=== PATIENT | male | born 1970 | race Caucasian/White ===

== ENCOUNTER 2018-10-31 09:09 | Inpatient (IN) ==
[2018-10-31] MEDS ORDERED: KETOROLAC 30 MG/ML VIAL IV STA (09:22)
[2018-10-31] MEDS ORDERED: ONDANSETRON INJ 2 MG/ML 2 ML VIAL IV STA (09:22)
[2018-10-31] MEDS ORDERED: TAMSULOSIN HCL 0.4 MG CAP PO ONE (09:22)
[2018-10-31] MEDS ORDERED: MoRPHine SULFATE 4 MG/ML 1 ML CARP\\VIAL IV STA (09:22)
[2018-10-31] MEDS ORDERED: SODIUM CHLORIDE 0.9% 1000ML 1,000 ML IV SCH (09:30)
[2018-10-31] MEDS ORDERED: MoRPHine SULFATE 2 MG/ML CARP ONE (09:38)
[2018-10-31 09:46] LABS: Basophils # (auto) 0.02 K/uL (0-0.2); Basophils % (auto) 0.2 %; Eosinophils # (auto) 0.03 K/uL (0-0.5); Eosinophils % (auto) 0.3 %; Hematocrit (blood only) 44.5 % (42-52); Hemoglobin 16.2 g/dL (14.0-18.0); Immature Granulocytes # (auto) 0.05 K/uL (0.00-0.02); Immature Granulocytes % (auto) 0.4 %; Lymphocytes # (auto) 1.21 K/uL (1.2-3.4); Lymphocytes % (auto) 10.1 %; Mean Corpuscular Hgb Conc 36.4 g/dL (32-36); Mean Corpuscular Volume 81.5 fL (80-100); Mean Platelet Volume 9.4 fL (7.4-10.4); Monocytes % (auto) 13.4 %; Neutrophils # (auto) 9.07 K/uL (1.4-6.5); Neutrophils % (auto) 75.6 %; Platelet Count 175 K/uL (130-400); RDW Coefficient of Variation 12.6 % (11.5-14.5); RDW Standard Deviation 37.3 fL (36.4-46.3); Red Blood Count 5.46 M/uL (4.7-6.1); White Blood Count 11.98 K/uL (4.8-10.8)
--- NOTE | 2018-10-31 09:46 | XRay Report ---
KUB CLINICAL HISTORY: Nephrolithiasis. Bilateral flank pain. FINDINGS: 2 AP supine abdominal radiographs are compared to study dated 10/29/2018 and correlated with abdominal CT dated 10/29/2018. There is a nonobstructed abdominal bowel gas pattern noting moderate c olonic fecal retention. The right renal shadow is largely obscured by overlying colonic contents. A 7 mm left renal calculus has changed in position from 10/29/2018 and now projects over the left uretero pelvic junction. 2 nonobstructing lower pole calculi are unchanged and measure up to 5 mm. No right r enal calculi are clearly identified. Numerous pelvic phleboliths are unchanged. There is mild lumbosa cral spondylosis. The bony pelvis appears intact. Lung bases are clear as imaged. IMPRESSION: 1. A 7 mm left renal calculus has changed in position from 10/29/2018 and now projects over the ureter opelvic junction. If there is left flank pain this likely causes obstruction. 2. Additional nonobstructing left renal calculi are unchanged from previous. 3. No right renal calculi are identified. The small distal right ureteral stone seen by CT on 10/30/19 19 is not apparent by x-ray. Electronically signed by: Tip Collier M.D. 10/31/2018 9:45 AM
--- NOTE | 2018-10-31 09:55 | Emergency Department Note ---
History of Present Illness General Chief complaint: Kidney Stone Stated complaint: KIDNEY STONES Time Seen by Provider: 10/31/18 09:13 History of Present Illness Maximum Pain Intensity: 9 This 47-year-old male with known kidney stones presents the ER with chief complaint of uncontrolled back and lower abdomen pain. The patient also admits to constant nausea and vomiting. The patient was seen here 2 days ago for the same symptoms. He had a CAT scan which revealed a 4 mm stone at the distal right ureter with moderate hydronephrosis. He was discharged home in stable condition on pain medication and was told to follow-up with urology yesterday. The patient states he called into urology and they stated there was no physician in the office and they contacted a physician and they stated that the patient could wait and be seen in the office on Friday by Dr. Hester. The patient states that since yesterday he has had increasing pain on both sides of his back and now it is into the groin. He thinks 1 of the stones that was in his left kidney is also moving. He does admit that he has an 11 mm stone in the left kidney. The patient states that his pain is uncontrolled on the hydrocodone. Home Medications Home Medications Medication Instructions Recorded Confirmed Type Trulicity 1 dose SUBCUT WK 08/13/18 10/31/18 History metformin 1,000 mg PO BID 08/13/18 10/31/18 History simvastatin 20 mg PO HS 08/13/18 10/31/18 History oxycodone-acetaminophen 1 tab PO Q6H PRN #14 tab 09/04/18 10/31/18 Rx acetaminophen [Tylenol Extra 1,000 mg PO Q6H PRN 10/29/18 10/31/18 History Strength] hydrocodone-acetaminophen [Hooven] 1 tab PO Q6H PRN #14 tab 10/29/18 10/31/18 Rx tamsulosin 0.4 mg PO DAILY #14 cap 10/29/18 10/31/18 Rx Allergies Allergy/AdvReac Type Severity Reaction Status Date / Time No Known Allergies Allergy Verified 10/29/18 17:15 Past Med/Surg History Medical History Kidney stone (Chronic) Diabetes mellitus, type 2 NIDDM Sleep apnea CPAP Surgical History History of ankle surgery LEFT History of inguinal hernia repair RT History of tonsillectomy and adenoidectomy Family History Mother Family history of diabetes mellitus Social History Preferred Language: [place] Islander Communication Ability: Effective V[employer] Required: No Beliefs That Will Affect Care: None Current Living Situation: Spouse Other Information That Helps Us Care for You: No Feels Safe at Home: Yes Safety Concerns: Feels Safe At This Time Smoking Status: Never smoker Second Hand Exposure: Yes Hx Alcohol Use: Yes Alcohol type: beer Hx Substance Use: No Review of Systems A total of 10 systems reviewed and were otherwise negative Physical Exam Vital Signs Vital Signs - 24 hr 10/31/18 09:11 10/31/18 09:48 Temperature 36.8 C Temperature Source Oral Oral Sepsis Recent Fever Within 48 Hours No Sepsis New/Unexplained Change in Mental Status No Sepsis Action Taken by Nursing No Action Required Pulse Rate 90 Respiratory Rate 18 Respiratory Pattern Regular Blood Pressure 157/93 H Blood Pressure Mean 114 Blood Pressure Position Sitting Pulse Oximetry 96 98 Oxygen Delivery Method Room Air Room Air GENERAL: 47-year-old male appears very uncomfortable standing hunched over at bedside MENTAL Status: Alert and oriented x3 MOUTH: Mucosa is slightly dry. NECK: Supple, no lymphadenopathy noted. No carotid bruits noted. LUNGS: Clear auscultation without wheezes rales or rhonchi. CARDIAC: Regular rate and rhythm without murmur. Pulses is full and equal throughout. BACK: No CVA tenderness noted. ABDOMEN: Positive bowel sounds all 4 quadrants. Soft, mild tenderness palpation in the lower abdomen otherwise nontender to palpation without organomegaly or masses. EXTREMITIES: No cyanosis or edema noted. Course Administered Medications Discontinued Medications Sodium Chloride (Nss 1000ml) 1,000 mls @ 999 mls/hr IV .Q1H1M ALEXANDER Stop: 10/31/18 10:30 Last Infusion: 10/31/18 10:55 Dose: 0 mls/hr Documented by: [id number] Admin: 10/31/18 09:44 Dose: 999 mls/hr Documented by: [id number] Ketorolac Tromethamine (Toradol) 30 mg IV NOW STA Stop: 10/31/18 09:23 Last Admin: 10/31/18 09:42 Dose: 30 mg Documented by: [id number] Morphine Sulfate (Morphine Sulfate) 6 mg IV NOW STA Stop: 10/31/18 09:23 Last Admin: 10/31/18 09:42 Dose: 4 mg Documented by: [id number] Morphine Sulfate (Morphine Sulfate) Confirm Administered Dose 2 mg .ROUTE .STK- MED ONE Stop: 10/31/18 09:39 Last Admin: 10/31/18 09:42 Dose: 2 mg Documented by: [id number] Ondansetron HCl (Zofran) 4 mg IV NOW STA Stop: 10/31/18 09:23 Last Admin: 10/31/18 09:42 Dose: 4 mg Documented by: [id number] Tamsulosin HCl (Flomax) 0.4 mg PO NOW ONE Stop: 10/31/18 09:23 Last Admin: 10/31/18 09:42 Dose: 0.4 mg Documented by: [id number] Medical Decision Making Differential Diagnosis Ureteral colic, UTI, pyelonephritis, ureteral calculi Medical Records Attestation: I reviewed the patient's medical records. Home Medications Current Medication List: was personally reviewed by me Laboratory Data Attestation: I reviewed the patient's lab results. Result diagrams: 10/31/18 09:35 10/31/18 09:35 Lab Results 10/31/18 10/31/18 Range/Units 09:35 09:35 WBC 11.98 H (4.8-10.8) K/uL RBC 5.46 (4.7-6.1) M/uL Hgb 16.2 (14.0-18.0) g/dL Hct 44.5 (42-52) % MCV 81.5 (80-100) fL MCH 29.7 (25-34) pg MCHC 36.4 H (32-36) g/dL RDW Std Deviation 37.3 (36.4-46.3) fL RDW Coeff of Anselmo 12.6 (11.5-14.5) % Plt Count 175 (130-400) K/uL MPV 9.4 (7.4-10.4) fL Immature Gran % (Auto) 0.4 % Neut % (Auto) 75.6 % Lymph % (Auto) 10.1 % Orange % (Auto) 13.4 % Eos % (Auto) 0.3 % Baso % (Auto) 0.2 % Immature Gran # (Auto) 0.05 H (0.00-0.02) K/uL Neut # (Auto) 9.07 H (1.4-6.5) K/uL Lymph # (Auto) 1.21 (1.2-3.4) K/uL Orange # (Auto) 1.60 H (0.11-0.59) K/uL Eos # (Auto) 0.03 (0-0.5) K/uL Baso # (Auto) 0.02 (0-0.2) K/uL Sodium 133 L (136-145) mmol/L Potassium 4.1 (3.5-5.1) mmol/L Chloride 100 (98-107) mmol/L Carbon Dioxide 24 (21-32) mmol/L Anion Gap 9.0 (3-11) BUN 25 H D (7-18) mg/dl Creatinine 4.36 H D (0.6-1.4) mg/dl Est Cr Clr Drug Dosing 23.7 ml/min Est GFR ( Amer) 17.3 Est GFR (Non-Af Amer) 14.9 BUN/Creatinine Ratio 5.8 L (10-20) Glucose 254 H (70-99) mg/dl Calcium 8.3 L (8.5-10.1) mg/dl Total Bilirubin 1.2 H (0.2-1) mg/dl AST 18 (15-37) U/L ALT 26 (12-78) U/L Alkaline Phosphatase 82 (45-117) U/L Total Protein 6.9 (6.4-8.2) gm/dl Albumin 3.6 (3.4-5.0) gm/dl Globulin 3.3 (2.5-4.0) gm/dl Albumin/Globulin Ratio 1.1 (0.9-2) Blood Pressure Blood Pressure Findings: Elevated blood pressure Blood Pressure Disposition: elevated BP felt to be situational MDM Narrative The patient was evaluated. The patient's EMR was reviewed. The patient had a CAT scan performed 2 days ago which revealed a 4 mm being right distal ureter stone with moderate hydronephrosis. Urinalysis was negative. IV access was obtained. The patient was given 1 L normal saline wide open. He was given Toradol 30 mg IV, Zofran 4 mg IV and morphine 6 mg IV. He was also given Flomax 0.4 mg p.o. KUB was ordered and interpreted by the radiologist and myself as a elizabeth. CBC differential, renal profile was ordered. [facility] hospitalist was consulted for admission. Labs are reviewed. Patient's white count was elevated at 11.98. BUN and creatinine were elevated at 25 and 4.36 respectively. Impression & Plan Kidney stone, Uncontrolled pain Discharge Plan Visit Data Chief Complaint: Kidney Stone Stated Complaint: KIDNEY STONES ED Provider: Robert Olvera ED Midlevel Provider: Marzena Young Discharge Problem: Kidney stone, Uncontrolled pain Patient Disposition: Being Evaluated by Hospitalist Condition: Good Discharge Instructions Interventions: ED Discharge Assessment Last Done: 10/31/18 11:08
[2018-10-31] MEDS ORDERED: ACETAMINOPHEN 325 MG TAB PO PRN (10:00)
[2018-10-31] MEDS ORDERED: ONDANSETRON INJ 2 MG/ML 2 ML VIAL IV PRN ×2 (10:00→12:56)
[2018-10-31 10:21] LABS: Albumin Globulin Ratio 1.1 (0.9-2); Albumin Level 3.6 gm/dl (3.4-5.0); BUN Creatinine Ratio 5.8 (10-20); Bilirubin,Total 1.2 mg/dl (0.2-1); Calcium 8.3 mg/dl (8.5-10.1); Creatinine Clr Calc Pharmacy 23.7 ml/min; Est GFR (African American) 17.3; Est GFR (Non-African American) 14.9; Globulin 3.3 gm/dl (2.5-4.0); Potassium 4.1 mmol/L (3.5-5.1); Total Protein 6.9 gm/dl (6.4-8.2)
--- NOTE | 2018-10-31 10:27 | History & Physical Report ---
Date of Service October 31, 2018 Assessment & Plan (1) CARINA (acute kidney injury): (2) Ureteral calculi: - Admit to med surg - Urology consulted - discussed with Dr. Mora over the phone, plans to see the patient this morning Pt had scheduled outpt lithotripsy scheduled for 1st week in December for left nephrolithiasis. - Keep NPO, last oral intake was yesterday for possible stent placement - CT FROM 10/29/18 showed 4 mm stone in the distal right ureter with moderate right hydroureteronephrosis. Also showing on that CT was right-sided perinephric and periureteric stranding/fluid, as well as heterogeneous enhancement of the right kidney. - KUB 10/31/18 shows 7 mm left sided at the [facility]. - WBC of 12K - Repeat UA today, last one was negative for infectious organisms. - No recent abx use, start unasyn IV now. - CARINA with creatinine elevated at 4.36 compared to 1.49 on 10/29/18 - Renal U/S stat - Cont Flomax - Dilaudid IV for pain - Check serum urine osm, FeNA, random urine sodium (3) HLD (hyperlipidemia): - Pt reports not taking statin at home routinely for months- will resume today with atherosclerosisis seen on imaging. - Repeat EKG for preop clearance - Have cardiology follow up set up prior to d/c home for maintenance evaluations (4) Diabetes mellitus: - Hold metformin and trulicity - Check A1C with am labs - ISS, accuchecks achs - Monitor glucose with am PRP (5) Obesity (BMI 30-39.9): - Diet and exercise to be encouraged again upon discharge. - BMI of 38.9 (6) Constipation: - Miralax and dulcolax PO scheduled. - Narcotics are likely contributing to constipation over past 4 days with being prescribed Emerson and Percocet for pain as outpatient. (7) Hepatic steatosis: - noted on imaging. (8) DVT prophylaxis: teds, no chemical ppx in setting of possible procedure. History of Present Illness Primary Care Provider: Vic Tijerina This is a 47 yo M with PMHx nephrolithiasis, DM type II, obesity, hepatic steatosis, HLD who presents with worsening of flank pain in the right and left. Patient notes that this started several days ago. He presented to the ER on 10/29/2018 due to gross hematuria, abdominal pain, dry heaves. At that point time the patient had a CT with contrast done with showed a 4 mm stone in the distal right ureter with moderate right hydroureteronephrosis. Also showing on that CT was right-sided perinephric and periureteric stranding/fluid, as well as heterogeneous enhancement of the right kidney. UA completed at that time was negative for infectious organisms. He went home without antibiotics, and with pain control with hydrocodone acetaminophen. He has been unable to drink or eat very well for the past 2 days. Pt notes last bowel movement was about 4 days ago, complains of distention, nausea, and more dry heaves today. He notes having a low grade fever yesterday of 99.5, but denies sweats or chills. Today a KUB was done showing Right sided stone of 4mm has moved since 2 days ago. Pt feels his pain is on both left and right flank areas and comes in waves. He took flomax in the ER, but did not take it at home since then. He notes urine output significantly dropped last evening. He denies gross hematuria since prior to first ER visit. Upon presentation today the patient is found to have CARINA with creatinine elevated at 4.36 compared to 1.49 on 10/29/18. WBC is 12K and afebrile. Allergies Allergy/AdvReac Type Severity Reaction Status Date / Time No Known Allergies Allergy Verified 10/29/18 17:15 Home Medications Home Medications Medication Instructions Recorded Confirmed Type Trulicity 1 dose SUBCUT WK 08/13/18 10/31/18 History metformin 1,000 mg PO BID 08/13/18 10/31/18 History simvastatin 20 mg PO HS 08/13/18 10/31/18 History oxycodone-acetaminophen 1 tab PO Q6H PRN #14 tab 09/04/18 10/31/18 Rx acetaminophen [Tylenol Extra 1,000 mg PO Q6H PRN 10/29/18 10/31/18 History Strength] hydrocodone-acetaminophen [Emerson] 1 tab PO Q6H PRN #14 tab 10/29/18 10/31/18 Rx tamsulosin 0.4 mg PO DAILY #14 cap 10/29/18 10/31/18 Rx Past Med/Surg History Medical History Kidney stone (Chronic) Diabetes mellitus, type 2 NIDDM Sleep apnea CPAP Surgical History History of ankle surgery LEFT History of inguinal hernia repair RT History of tonsillectomy and adenoidectomy Family History Mother Family history of diabetes mellitus Social History Preferred Language: Upper Sorbian Communication Ability: Effective Primary School Principal Required: No Beliefs That Will Affect Care: None Current Living Situation: Spouse Other Information That Helps Us Care for You: No Feels Safe at Home: Yes Safety Concerns: Feels Safe At This Time Smoking Status: Never smoker Second Hand Exposure: Yes Hx Alcohol Use: Yes Alcohol type: beer Hx Substance Use: No Review of Systems Review of Systems: Constitutional: Low grade fever 99.5 per pt, no sweats or chills Eyes: No diplopia, no worsening or blurred vision ENT: normal hearing, no trouble swallowing Respiratory: No cough, sputum, dyspnea at rest or on exertion Cardiovascular: No chest pain, tightness or palpitations Abdomen: + left and right sided flank pain, +nausea, + dry heaves, no vomiting, no diarrhea, + constipation, Last Bm was 4 d ago. Musculoskeletal: No joint pain, calf pain, swelling Neurologic: No weakness, numbness/tingling, or balance problems Psychiatric: No anxiety or depression Skin: No rash or itch Physical Exam Physical Exam: General: awake, alert, no apparent distress Head: Normocephalic, atraumatic ENT: PERRL, EOMI, no pharyngeal exudate, mucous membranes moist Chest: Clear to auscultation, on room air, no adventitious breath sounds Cardiac: Regular rate and rhythm, no murmur, no JVD, normal peripheral pulses, good capillary refill Abdominal: Hypoactive bs x 4 quad, + mild distension, + tympanic, minimally tender to palpation in the left flank region. no rebound, guarding Extremities: Normal inspection, no peripheral edema or erythema, calfs nontender to palpation Psych: Normal mood and affect Neuro: AAO x 3, no motor deficits, speech is clear Results & Data Vital Signs (Past 12 Hours) Vital Signs Temp Pulse Resp BP Pulse Ox 06/29/19 09:48 98 10/31/18 09:11 36.8 C 90 18 157/93 H 96 Diagnostic Findings KUB CLINICAL HISTORY: Nephrolithiasis. Bilateral flank pain. FINDINGS: 2 AP supine abdominal radiographs are compared to study dated 10/29/2018 and correlated with abdominal CT dated 10/29/2018. There is a nonobstructed abdominal bowel gas pattern noting moderate colonic fecal retention. The right renal shadow is largely obscured by overlying colonic contents. A 7 mm left renal calculus has changed in position from 10/29/2018 and now projects over the left ureteropelvic junction. 2 nonobstructing lower pole calculi are unchanged and measure up to 5 mm. No right renal calculi are clearly identified. Numerous pelvic phleboliths are unchanged. There is mild lumbosacral spondylosis. The bony pelvis appears intact. Lung bases are clear as imaged. IMPRESSION: 1. A 7 mm left renal calculus has changed in position from 10/29/2018 and now projects over the ureteropelvic junction. If there is left flank pain this likely causes obstruction. 2. Additional nonobstructing left renal calculi are unchanged from previous. 3. No right renal calculi are identified. The small distal right ureteral stone seen by CT on 10/29/2018 is not apparent by x-ray. CT SCAN OF THE ABDOMEN AND PELVIS WITH IV CONTRAST CLINICAL HISTORY: Right flank pain. Leukocytosis. COMPARISON STUDY: Abdominal CT dated 08/13/2018. TECHNIQUE: Following the IV administration of 95 cc of Optiray 320, CT scan of the abdomen and pelvis is performed from the lung bases to the proximal femora. Images are reviewed in the axial, sagittal, and coronal planes. IV contrast was administered without complication. A dose lowering technique was utilized adhering to the principles of ALARA. CT DOSE: 1377.34 mGy.cm FINDINGS: Lung bases: The heart is normal in size and without pericardial effusion. There are coronary artery calcifications. There is mild elevation of the right h emidiaphragm and bibasilar atelectasis. No airspace consolidation or pleural effusion is identified. A calcific granuloma is noted in the right lower lobe. There is a tiny hiatal hernia. Liver: The contrast-enhanced liver is enlarged, measuring 19.6 cm in length. The liver demonstrates diffusely diminished attenuation consistent with severe hepatic steatosis. There is no intrahepatic biliary ductal dilatation. The hepatic veins and portal veins are patent. Gallbladder: Unremarkable. Spleen: Normal in size and attenuation. Pancreas: Unremarkable. Adrenal glands: Unremarkable. Kidneys: The contrast enhanced kidneys are normal in size. There is a 4 mm obstructing calculus in the distal right ureter seen on image #[id number]. This is located approximately 4.5 cm above the vesicoureteral junction and causes moderate right hydroureteronephrosis. There is associated right-sided perinephric and periureteric stranding and fluid. No additional right renal calculi are clearly identified. There are at least 4 nonobstructing left renal calculi which measure up to 7 mm. There is no left-sided hydronephrosis. There is heterogeneous enhancement of the right kidney. The left kidney enhances homogeneously. An extrarenal pelvis and parapelvic cysts are noted on the left. A 4.4 cm cyst is again seen in the interpolar right kidney. Abdominal vasculature: The abdominal aorta is normal in course and caliber noting mild atherosclerotic calcification. Bowel: There is no bowel obstruction. The appendix is well-visualized and normal. Peritoneum: There is no intraperitoneal free air or abdominal ascites. There is a large fat-containing umbilical hernia. Lymphadenopathy: None. Pelvic viscera: The bladder, prostate, and seminal vesicles are normal as visualized. Skeletal structures: Mild lumbosacral spondylosis is observed. No lytic or blastic lesions are seen. IMPRESSION: 1. There is a 4 mm obstructing calculus in the distal right ureter. This causes moderate right hydroureteronephrosis. 2. There is right-sided perinephric and periureteric stranding/fluid, as well as heterogeneous enhancement of the right kidney. Correlate clinically and with urinalysis for evidence of superimposed urinary tract infection. 3. No additional right renal calculi are clearly identified. 4. There are nonobstructing left renal calculi as above. 5. Hepatomegaly and severe hepatic steatosis. 6. There is age advanced atherosclerotic calcification of the coronary arteries. Consider nonemergent cardiology consultation. Code Status & VTE Plan Code Status Full code Supervising Physician Co-Signing Physician Notes The patient was seen and examined by me and I agree with the assessment and plan done by Adry Rose PA-C. Patient appears to have developed acute renal failure with a significant and rapid increase in creatinine from 1.42 days ago to 4.3 currently. His BUN is 25. He did receive intravenous contrast with a CT scan several days ago which is probably the culprit. He did not receive any antibiotic therapy. There probably is a prerenal component also due to somewhat poor oral intake recently. He does have bilateral ureteral stones, 7 mm on the left and 4 mm on the right. Urology has been consulted to see the pat ient today. Nephrology consult has also been requested. The patient agrees to Shah catheter placement for accurate urine output measurements. He has had poor oral intake over the past several days and appears to be mildly volume depleted. He will be given aggressive IV fluids initially. This can be tapered down depending on his clinical response. He does not appear to be septic but his white blood cell count is elevated and he may have a component of pyelonephritis. Intravenous Unasyn has been ordered. Lungs are clear, heart rhythm is regular, abdomen is soft with active bowel sounds. PG Care Time/CCT Total # of Minutes Spent Total Time Spent with Patient: Total time spent is greater than 50% in coordination of care (as documented) at patient's floor/unit and/or counseling patient:
[2018-10-31] MEDS ORDERED: AMPICILLIN/SULBACTAM SOD 1,500 MG in 0.9 % SODIUM CHLORIDE 100 ML IV STA (12:14)
[2018-10-31] MEDS ORDERED: GLUCOSE 40% GEL 15 GM TUBE PO PRN (12:14)
[2018-10-31] MEDS ORDERED: CARBOHYDRATES FOR HYPOGLYCEMIA PO PRN (12:14)
[2018-10-31] MEDS ORDERED: GLUCAGON FOR INJ 1 MG VIAL SQ PRN (12:14)
[2018-10-31] MEDS ORDERED: DEXTROSE 50% 50 ML SYRINGE IV PRN (12:14)
[2018-10-31] MEDS ORDERED: HYDROmorphone INJ 0.5 MG/0.5 ML SYR IV PRN (12:14)
[2018-10-31] MEDS ORDERED: GLUCOSE 10 TABS/TUBE PO PRN (12:14)
--- NOTE | 2018-10-31 12:23 | Urology Consultation ---
Date of Consultation October 31, 2018 Assessment & Plan (1) Bilateral ureteral calculi: History of Present Illness Attending Physician: Andres Hester MD Vahid is a 47-year-old male with a known left renal stone status post left ESWL in September with minimal fragmentation. He is followed by Dr. Hester and has been scheduled for left ureteroscopy in December. In addition he previously had a right ureter stone that he had thought he had passed. 2 days ago he presented with bilateral flank pain had a CAT scan that showed persistence of a 4 mm distal right ureteral stone. His creatinine at that time was 1.49. There was no left ureteral stone. There were left renal stones as previously stated that had been partially fragmented by ESWL. Yesterday he began to have bilateral pain and a decrease in the amount of urine that he has and he went for emergency room evaluation had a KUB that shows a left 6 to 7 mm UPJ stone and a rise in his creatinine to 4.36. He has flank pain that is now controlled with narcotics. He is a type II diabetic with a glucose in the 250 range. He is hypertensive. White count is a little above 11,000. He did say that he had a low-grade temp yesterday early or Friday late. Currently no fever or chills. Allergies Allergy/AdvReac Type Severity Reaction Status Date / Time No Known Allergies Allergy Verified 10/29/18 17:15 Home Medications Home Medications Medication Instructions Recorded Confirmed Type Trulicity 1 dose SUBCUT WK 08/13/18 10/31/18 History metformin 1,000 mg PO BID 08/13/18 10/31/18 History simvastatin 20 mg PO HS 08/13/18 10/31/18 History oxycodone-acetaminophen 1 tab PO Q6H PRN #14 tab 09/04/18 10/31/18 Rx acetaminophen [Tylenol Extra 1,000 mg PO Q6H PRN 10/29/18 10/31/18 History Strength] hydrocodone-acetaminophen [[place]] 1 tab PO Q6H PRN #14 tab 10/29/18 10/31/18 Rx tamsulosin 0.4 mg PO DAILY #14 cap 10/29/18 10/31/18 Rx Patient History Medical History Kidney stone (Chronic) Diabetes mellitus, type 2 NIDDM Sleep apnea CPAP Surgical History History of ankle surgery LEFT History of inguinal hernia repair RT History of tonsillectomy and adenoidectomy Family History Mother Family history of diabetes mellitus Social History Preferred Language: Norwegian Communication Ability: Effective Underwriting Consultant Required: No Beliefs That Will Affect Care: None Current Living Situation: Spouse Other Information That Helps Us Care for You: No Feels Safe at Home: Yes Safety Concerns: Feels Safe At This Time Smoking Status: Never smoker Second Hand Exposure: Yes Hx Alcohol Use: Yes Alcohol type: beer Hx Substance Use: No Review of Systems Review of Systems: All systems reviewed & are unremarkable except as noted in HPI & below Bilateral flank pain Physical Exam Physical Exam: General: awake, alert, no apparent distress Head: Normocephalic, atraumatic ENT: PERRL, EOMI, no pharyngeal exudate, mucous membranes moist Chest: Clear to auscultation, on room air, no adventitious breath sounds Cardiac: Regular rate and rhythm, no murmur, no JVD, normal peripheral pulses, good capillary refill Abdominal: Hypoactive bs x 4 quad, + mild distension, + tympanic, minimally tender to palpation in the left flank region. no rebound, guarding Extremities: Normal inspection, no peripheral edema or erythema, calfs nontender to palpation Psych: Normal mood and affect Neuro: AAO x 3, no motor deficits, speech is clear Results & Data Vital Signs (Past 12 Hours) Vital Signs Temp Pulse Resp BP Pulse Ox 10/31/18 09:48 98 10/31/18 09:11 36.8 C 90 18 157/93 H 96
--- NOTE | 2018-10-31 12:44 | Nephrology Consultation ---
Date of Consultation October 31, 2018 Assessment & Plan (1) CARINA (acute kidney injury): -- CARINA related to dehydration, NSAID administration, IV contrast and R ureteral obstruction -- Volume status and electrolyte balance are acceptable. No acute indication for HD at this time -- Case discussed w/ primary service and Urology. Agree that patient will benefit from cystoscopy and ureteral stenting today -- Await urine culture results. Recommend consultation w/ Pharmacy for antibiotic dosing in the setting of CARINA -- Continue hydration w/ 0.9NS at 150 cc/hr -- Monitor PRP -- Hold Metformin & Trulicity. Manage blood sugar w/ insulin. Avoid NSAIDS -- Baseline creatinine ~ 1.0 History of Present Illness Reason for Consultation: CARINA Attending Physician: Andres Hester MD History of Present Illness Mr. Hall is a 47 year old white male who is seen at the request of Dr. Smith for evaluation of CARINA. 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 His medical history is significant for HTN, obesity, hyperchole sterolemia, hepatic steatosis, ROBERT and AODM. Two days ago he developed R flank pain, dry heaves and gross hematuria. He presented to the ED where abdominal CT w/ contrast revealed an obstructing R ureteral kidney stone, mild R hydronephrosis and several small stones in the L kidney. Mr. Hall was started on oral Flomax and given one dose of IV Toradol. He was scheduled for outpatient Urology evaluation. This morning, however, he developed L flank discomfort and returned to the ED for evaluation. Laboratory studies revealed CARINA. Creatinine increased from 1.0 to 4.36. He is now admitted for IV hydration, empiric antibiotic therapy and Urology evaluation for ureteral stenting Allergies Allergy/AdvReac Type Severity Reaction Status Date / Time No Known Allergies Allergy Verified 10/29/18 17:15 Home Medications Home Medications Medication Instructions Recorded Confirmed Type Trulicity 1 dose SUBCUT WK 08/13/18 10/31/18 History metformin 1,000 mg PO BID 08/13/18 10/31/18 History simvastatin 20 mg PO HS 08/13/18 10/31/18 History oxycodone-acetaminophen 1 tab PO Q6H PRN #14 tab 09/04/18 10/31/18 Rx acetaminophen [Tylenol Extra 1,000 mg PO Q6H PRN 10/29/18 10/31/18 History Strength] hydrocodone-acetaminophen [[place]] 1 tab PO Q6H PRN #14 tab 10/29/18 10/31/18 Rx tamsulosin 0.4 mg PO DAILY #14 cap 10/29/18 10/31/18 Rx Patient History Medical History Kidney stone (Chronic) Diabetes mellitus, type 2 NIDDM Sleep apnea CPAP Surgical History History of ankle surgery LEFT History of inguinal hernia repair RT History of tonsillectomy and adenoidectomy Family History Mother Family history of diabetes mellitus Social History Preferred Language: Thai Communication Ability: Effective Beliefs That Will Affect Care: None Current Living Situation: Spouse Feels Safe at Home: Yes Smoking Status: Never smoker Second Hand Exposure: Yes Hx Alcohol Use: Yes Alcohol type: beer Hx Substance Use: No Review of Systems Constitutional: no fever Respiratory: no cough and no dyspnea Cardiovascular: no chest pain, no dyspnea on exertion, no palpitations and no edema Gastrointestinal: no abdominal pain, no vomiting and no diarrhea/loose stools Genitourinary: + hematuria and + flank pain Physical Exam Constitutional: WD/WN, vitals as above Eyes: PERRL, conjunctivae normal, anicteric sclerae ENMT: dry mucous membranes Neck: trachea midline, no thyromegaly Respiratory: normal respiratory effort, lungs clear to auscultation Cardiovascular: RRR, no murmur, no edema Gastrointestinal (Abdomen): normal bowel sounds, soft, nontender, no hepatosplenomegaly Results & Data Vital Signs (Past 12 Hours) Vital Signs Temp Pulse Resp BP Pulse Ox 10/31/18 09:48 98 10/31/18 09:11 36.8 C 90 18 157/93 H 96 Laboratory Results Laboratory Tests 10/31/18 10/31/18 09:35 09:35 WBC 11.98 H Hgb 16.2 Hct 44.5 Plt Count 175 Sodium 133 L Potassium 4.1 Chloride 100 Carbon Dioxide 24 BUN 25 H D Creatinine 4.36 H D Glucose 254 H Calcium 8.3 L Albumin 3.[address] 10/29/18: Kidneys - The contrast enhanced kidneys are normal in size. There is a 4 mm obstructing calculus in the distal right ureter seen on image #[id number]. This is located approximately 4.5 cm above the vesicoureteral junction and causes moderate right hydroureteronephrosis. There is associated right-sided perinephric and periureteric stranding and fluid. No additional right renal calculi are clearly identified. There are at least 4 nonobstructing left renal calculi which measure up to 7 mm. There is no left-sided hydronephrosis. There is heterogeneous enhancement of the right kidney. The left kidney enhances homogeneously. An extrarenal pelvis and parapelvic cysts are noted on the left. A 4.4 cm cyst is again seen in the interpolar right kidney.
[2018-10-31] MEDS: SODIUM CHLORIDE 0.9% 1000ML 1,000 ML IV SCH ×3 (12:49→23:11)
[2018-10-31] MEDS ORDERED: ATROPINE SULFATE 0.1 MG/ML 10ML SYR IV PRN (12:56)
[2018-10-31] MEDS ORDERED: ePHEDrine sulfate 50 MG/ML AMP IV PRN (12:56)
[2018-10-31] MEDS ORDERED: fentaNYL citrate 100 MCG/2 ML VIAL IV PRN (12:56)
--- NOTE | 2018-10-31 12:59 | Anesthesiology Consultation ---
Date of Service October 31, 2018 Assessment & Plan (1) Encounter for pre-operative examination: Chart Review Chart Review: Acceptable Risk for Surgery Consults Requested none ASA [id number] Proposed Anesthesia Anesthesia Type: General Risk / Benefits Reviewed With: PT / POA / Parent / Guardian, Accepts Plan and Informed Consent Obtained History Surgery Operation Date: 10/31/18 12:45 Proposed Procedures p Laser Lithotripsy Holmium(Bilateral) - Blanco Mora MD Height/Weight Height: 5 ft 6 in Weight: 109.4 kg Allergies Allergy/AdvReac Type Severity Reaction Status Date / Time No Known Allergies Allergy Verified 10/29/18 17:15 Medications Home Medications Medication Instructions Recorded Confirmed Last Taken Trulicity 1 dose SUBCUT WK 08/13/18 10/31/18 10/25/18 metformin 1,000 mg PO BID 08/13/18 10/31/18 10/29/18 simvastatin 20 mg PO HS 08/13/18 10/31/18 10/27/18 oxycodone-acetaminophen 1 tab PO Q6H PRN #14 tab 09/04/18 10/31/18 10/29/18 14:30 acetaminophen [Tylenol Extra 1,000 mg PO Q6H PRN 10/29/18 10/31/18 10/28/18 Strength] hydrocodone-acetaminophen [[place]] 1 tab PO Q6H PRN #14 tab 10/29/18 10/31/18 Unknown tamsulosin 0.4 mg PO DAILY #14 cap 10/29/18 10/31/18 Unknown Active Medications Generic Name Dose Route Start Last Admin Trade Name Freq PRN Reason Stop Dose Admin Sodium Chloride 1,000 mls @ 150 mls/hr 10/31/18 11:30 10/31/18 13:02 Nss 1000ml IV 11/30/18 11:29 0 mls/hr .[id number] ALEXANDER Titration NPO Date Last Intake of Fluids: 10/31/18 Time Last Intake of Fluids: 09:00 Date Last Intake of Solids: 10/30/18 Time Last Intake of Solids: 17:00 Past Medical History Medical History Kidney stone (Chronic) Diabetes mellitus, type 2 NIDDM Sleep apnea CPAP Exercise / Class Metabolic Activity II 4-5 Yardwork/Stairs/Walk up hill Past Family History Family History Mother Family history of diabetes mellitus Past Surgical History Surgical History History of ankle surgery LEFT History of inguinal hernia repair RT History of tonsillectomy and adenoidectomy Past Anesthesia History No Hx of Anesthesia Complications and No Family Hx of Anesthesia Complications History of PONV No Hx of PONV and No Hx of Motion Sickness Social History Smoking Status: Never smoker Hx Alcohol Use: Yes Alcohol type: beer alcohol intake frequency: a few times a month Hx Substance Use: No substance use type: does not use Physical Exam Vital Signs Last Vital Signs Temp 98.2 F 10/31/18 09:11 Pulse 90 10/31/18 09:11 Resp 18 10/31/18 09:11 BP 157/93 H 10/31/18 09:11 Pulse Ox 98 10/31/18 09:48 ENMT Mouth: no dentition abnormality Thyromental Distance: > or= 3.5 Finger Breadths Mallampati Class: II Neck normal visual inspection Respiratory normal respiratory effort Auscultation: lungs clear to auscultation bilaterally Cardiovascular Rate/Rhythm: regular rate and regular rhythm Testing Laboratory Results 10/31/18 09:35 10/31/18 09:35 Electrocardiogram Date: 08/26/18 Normal sinus rhythm, rate 81bpm Normal ECG No previous ECGs available Confirmed by Preston Dash ([id number]) on 08/27/2018 12:48:10 PM Chest X-Ray Date: 08/26/18 Findings: + NAD
[2018-10-31] MEDS ORDERED: fentaNYL citrate 100 MCG/2 ML VIAL ONE (13:05)
[2018-10-31] MEDS ORDERED: MIDAZOLAM HCL 1 MG/ML 2ML VIAL ONE (13:05)
[2018-10-31] MEDS ORDERED: ONDANSETRON INJ 2 MG/ML 2 ML VIAL ONE (13:07)
[2018-10-31] MEDS ORDERED: LIDOCAINE HCL 2% 2 ML VIAL/AMP(20MG/ML) INFIL ONE (13:07)
[2018-10-31] MEDS ORDERED: PROPOFOL IV EMULSION 10 MG/ML 20 ML VIAL IV ONE ×2 (13:07→14:19)
[2018-10-31] MEDS ORDERED: IOTHALAMATE MEGLUMINE II 17.2% 250 ML VIAL ONE (13:23)
[2018-10-31] MEDS ORDERED: PHENYLEPHRINE 100MCG/ML 5ML SYR ONE (13:53)
[2018-10-31] MEDS: INSULIN ASPART 100 UNITS/ML 3 ML PEN SC SCH ×3 (14:03→21:11)
--- NOTE | 2018-10-31 14:40 | Post Operative Brief Note ---
Immediate Post Op Note v1 Date of Surgery October 31, 2018 Pre & Post Diagnosis Operation Date: 10/31/18 12:45 Pre-Op Diagnosis: bilateral ureteral stones Post-Op Diagnosis: bilateral ureteral stones Procedure Operation Date: 10/31/18 12:45 Actual Procedures p Cystoscopy, Right Ureteroscopy, Laser Lithotripsy, Bilateral Stent Placement, Ureteral Dilation (right) left retrograde- Blanco Mora MD Surgeon Blanco Mora MD Grinder Set Up Operator Internal none Estimated Blood Loss 5 Findings Consistent with Post-Op Diagnosis
--- NOTE | 2018-10-31 15:03 | Anesthesiology Progress Note ---
Date of Service October 31, 2018 Anesthesia Post Procedure Vital Signs Vital Signs: Temp Pulse Pulse Resp BP BP Pulse Ox 10/31/18 15:00 83 16 108/78 98 10/31/18 14:50 84 18 102/67 99 10/31/18 14:42 97.2 F L 88 20 98/64 L 98 10/31/18 09:48 98 10/31/18 09:11 98.2 F 90 18 157/93 H 96 Pain Intensity Flank: Pain Intensity: 6 Transfer of Care Handoff Completed per policy Notes Mental Status: alert / awake / arousable and participated in evaluation Patient Amnestic to Procedure: Yes Nausea / Vomiting: adequately controlled Pain: adequately controlled Airway Patency, RR, SpO2: stable & adequate BP & HR: stable & adequate Hydration State: stable & adequate Anesthetic Complications: no major complications apparent and Pt Satisfied with anesthetic care
--- NOTE | 2018-10-31 15:10 | Fluoroscopy Report ---
INTRAOPERATIVE RADIOGRAPHS CLINICAL HISTORY: Bilateral ureteral stent placement. Fluoroscopy time: 33 seconds. FINDINGS: 3 spot fluoroscopic views of the abdomen are presented. Correlation is made with KUB dated 10/31/2018. The 3 images show bilateral ureteral stents being placed. These appear to be in appropriat e position. No definite calcifications are identified along the course of the stents. IMPRESSION: Intraoperative images from bilateral ureteral stent placements. See operative report for detailed findings. Electronically signed by: Tip Collier M.D. 10/31/2018 3:08 PM
--- NOTE | 2018-10-31 15:13 | Operative Report ---
DATE OF OPERATION: 10/31/2018 PREOPERATIVE DIAGNOSES: Bilateral ureteral calculi, renal failure, meatal stenosis. POSTOPERATIVE DIAGNOSES: Bilateral ureteral calculi, renal failure, meatal stenosis. SURGEON: Blanco Mora MD. ANESTHESIA: General. INDICATIONS: The patient is a 47-year-old male who had a known history previously of a right stone that had been felt to have passed. He had a known large left renal stone that had lithotripsy on it in September, but did not completely break the stone and the stone pieces were not passing. He was tentatively scheduled for ureteroscopy for these stones up in his kidney. He came in with severe right-sided pain 2 days ago and had a CAT scan that showed a distal obstructing right renal stone and a creatinine of 1.49. He returns today with worsening bilateral pain and decreased urine flow and had a KUB that showed a stone in the left upper quadrant consistent with a left UPJ stone. Because of this and the fact that his creatinine landon to 4.3, the patient was taken urgently for cystoscopy. Because the stone on the right was distal, I told him that I would try to do ureteroscopy, but I was only going to place a stent on the left side. DESCRIPTION OF THE PROCEDURE: The patient was taken to the operating room where general anesthesia was administered. He was placed in dorsal lithotomy position, prepped and draped in usual sterile fashion. A 21-Mauritian cystoscope was passed per urethra and initially I was unable to pass the scope, so I needed to dilate him with Arthur sounds to 24-Mauritian. So, he was dilated to 24-Mauritian, I was able then to pass a 21-Mauritian cystoscope per urethra. There were no strictures. The prostate was moderately obstructing. Once inside the bladder, the bladder appeared to be free of tumor. I did place a retrograde into the left side. He had significant hydronephrosis on the left side, I was able to pass a guidewire into the renal pelvis and then I passed a 6-Mauritian 24 cm stent with strings at the end as opposed to a curve without a tether and removed the wire. Next, I focused my attention on the right side and attempted to pass a guidewire. It was somewhat difficult. I was finally able to get a guidewire beyond the stone and there was clear significant bloody hydronephrotic drip after this. Once I got the stone under fluoroscopy into the renal pelvis, I have tried to pass a ureteroscope, but there was significant narrowing. I had to do on 2 attempts after replacing the cystoscope, dilated the distal ureter. I did not want to dilate it beyond the very distal obstruction because I did not want to put the stone into the ureteral wall, so I tried once and that had to do it a second time after the first time I attempted to pass the ureteroscope and was unable to do so. We placed the cystoscope and passed the balloon dilator slightly higher, balloon dilated and then on the second attempt was able to get the ureteroscope up to the stone. I used the laser at settings of 6 Hz and 0.4 joules and was able to fragment the stone into pieces that passed on their own into the bladder. I passed the scope back up and did not see any remaining fragments and there was where the stone was a slight tear in the ureter. I then removed the scope, did not retrieve any fragments so did not have anything opened to retrieve them with. We tried to look and see if any fragmentswashed out, all the fragments were quite small, less than a millimeter. At this point, I placed a 6-Mauritian 24 cm stent with 2 curls, one in the bladder and one in the renal pelvis to differentiate it from the strings of the left-sided stent. At this point, the patient's bladder was emptied. He was transferred to recovery room in stable condition. I attest to the content of the Intraoperative Record and any orders documented therein. Any exceptions are noted below. CARRIE
[2018-10-31] MEDS ORDERED: OXYCODONE/ACETAMINOPHEN 5mg/325mg TAB PO PRN (15:33)
[2018-10-31] MEDS ORDERED: HYDROCODONE/ACETAMOPHEN 5/325MG TAB PO PRN (15:33)
[2018-10-31] MEDS ORDERED: ACETAMINOPHEN 500 MG TAB PO PRN (15:33)
[2018-10-31] MEDS: TRULICITY: ORDER AWAITING ACTION SCH ×2 (17:02→23:43)
[2018-10-31 19:54] LABS: Appearance Urine Cloudy (Clear); Color Urine Red; Ictotest Urine Negative (Negative); Specific Gravity Urine 1.009 (1.000-1.030)
[2018-10-31 20:06] LABS: Bacteria Urine Automated Negative (Negative); Epithelial Cell Urine Auto >30 /lpf (0-5); RBC Urine Automated >30 /hpf (0-4); Renal Epithelial Cells Urine 0-5 /lpf (0-5); WBC Urine Automated >30 /hpf (0-5)
[2018-10-31] MEDS ORDERED: SIMVASTATIN 20 MG TAB PO SCH (21:00)
[2018-11-01] MEDS: SODIUM CHLORIDE 0.9% 1000ML 1,000 ML IV SCH (05:53)
[2018-11-01 06:23] LABS: Hematocrit (blood only) 41.7 % (42-52); Hemoglobin 14.5 g/dL (14.0-18.0); Mean Corpuscular Hgb Conc 34.8 g/dL (32-36); Mean Corpuscular Volume 82.7 fL (80-100); Mean Platelet Volume 9.9 fL (7.4-10.4); Platelet Count 165 K/uL (130-400); RDW Coefficient of Variation 12.8 % (11.5-14.5); RDW Standard Deviation 38.4 fL (36.4-46.3); Red Blood Count 5.04 M/uL (4.7-6.1)
[2018-11-01 07:02] LABS: Albumin Level 3.1 gm/dl (3.4-5.0); BUN Creatinine Ratio 12.7 (10-20); Calcium 8.1 mg/dl (8.5-10.1); Creatinine Clr Calc Pharmacy 59.2 ml/min; Est GFR (African American) 51.5; Est GFR (Non-African American) 44.4; Globulin 3.2 gm/dl (2.5-4.0); Potassium 4.1 mmol/L (3.5-5.1); Total Protein 6.3 gm/dl (6.4-8.2)
[2018-11-01] MEDS: TRULICITY: ORDER AWAITING ACTION SCH (07:33)
[2018-11-01] MEDS ORDERED: BISACODYL 5 MG TABEC PO ONE (07:37)
[2018-11-01] MEDS: INSULIN ASPART 100 UNITS/ML 3 ML PEN SC SCH (08:35)
[2018-11-01] MEDS ORDERED: BISACODYL 5 MG TABEC PO SCH (09:00)
[2018-11-01] MEDS ORDERED: TAMSULOSIN HCL 0.4 MG CAP PO SCH (09:00)
[2018-11-01] MEDS ORDERED: POLYETHYLENE (MIRALAX) 17 GM PACK PO SCH (09:00)
--- NOTE | 2018-11-01 10:26 | Nephrology Progress Note ---
Date of Service November 01, 2018 Assessment & Plan (1) CARINA (acute kidney injury): -- CARINA related to dehydration, NSAID administration, IV contrast and R ureteral obstruction -- Patient is in recovery phase following bilateral ureteral stent placement. Creatinine has improved from 4.3 to 1.7 overnight. Baseline creatinine ~1.0 -- Volume status and electrolyte balance remain acceptable. Patient is tolerating oral hydration. Will heplock IV at 1300 hrs today -- Recheck PRP at 1300 hrs today -- If discharge is anticipated, recommend follow up w/ PCP and Urology within 7 - 14 days -- No further Nephrology evaluation indicated at this time. Will sign off. Please call if further assistance is needed. Subjective Mr. Hall was seen & examined in his hospital room this morning. He underwent bilateral ureteral stent placement yesterday. There were no complications. He currently denies fever, flank pain, gross hematuria or uremic symptoms. Review of Systems Constitutional: no fever Respiratory: no dyspnea Cardiovascular: no chest pain Gastrointestinal: no abdominal pain, no vomiting and no diarrhea/loose stools Genitourinary: no dysuria, no hematuria and no flank pain Physical Exam Constitutional: WD/WN, vitals as above Eyes: PERRL, conjunctivae normal, anicteric sclerae Neck: trachea midline, no thyromegaly Respiratory: normal respiratory effort, lungs clear to auscultation Cardiovascular: RRR, no murmur, no edema Gastrointestinal (Abdomen): normal bowel sounds, soft, nontender, no hepatosplenomegaly Results & Data Vital Signs (Past 12 Hours) Vital Signs Temp Pulse Resp BP Pulse Ox 11/01/18 07:32 37.1 C 82 18 147/76 H 95 11/01/18 04:00 37.2 C 85 18 113/63 94 10/31/18 23:28 37.7 C H 85 17 114/65 92 Laboratory Results Laboratory Tests 11/01/18 11/01/18 05:56 05:56 WBC 8.00 Hgb 14.5 Hct 41.7 L Plt Count 165 Sodium 142 D Potassium 4.1 Chloride 113 H Carbon Dioxide 22 BUN 23 H Creatinine 1.77 H D Glucose 201 H Calcium 8.1 L Albumin 3.1 L
--- NOTE | 2018-11-01 11:23 | Urology Progress Note ---
Date of Service November 01, 2018 Subjective 47-year-old male status post right ureteroscopy and laser lithotripsy yesterday with removal of right stone and placement of left stent. Creatinine markedly lower today 1.7. Patient without significant discomfort except for mild left lower quadrant discomfort voiding. Patient okay for discharge to home today from urologic point of view. Patient has follow-up scheduled with Dr. Hester on Friday. Results & Data Vital Signs (Past 12 Hours) Vital Signs Temp Pulse Pulse Resp BP Pulse Ox 11/01/18 11:18 37.1 C 94 H 82 18 147/76 H 95 11/01/18 07:32 37.1 C 82 18 147/76 H 95 11/01/18 04:00 37.2 C 85 18 113/63 94 10/31/18 23:28 37.7 C H 85 17 114/65 92
--- NOTE | 2018-11-01 12:05 | Discharge Summary ---
Date of Service November 01, 2018 Admission HPI Per Admitting Provider This is a 47 yo M with PMHx nephrolithiasis, DM type II, obesity, hepatic steatosis, HLD who presents with worsening of flank pain in the right and left. Patient notes that this started several days ago. He presented to the ER on 10/29/2018 due to gross hematuria, abdominal pain, dry heaves. At that point time the patient had a CT with contrast done with showed a 4 mm stone in the distal right ureter with moderate right hydroureteronephrosis. Also showing on that CT was right-sided perinephric and periureteric stranding/fluid, as well as heterogeneous enhancement of the right kidney. UA completed at that time was negative for infectious organisms. He went home without antibiotics, and with pain control with hydrocodone acetaminophen. He has been unable to drink or eat very well for the past 2 days. Pt notes last bowel movement was about 4 days ago, complains of distention, nausea, and more dry heaves today. He notes having a low grade fever yesterday of 99.5, but denies sweats or chills. Today a KUB was done showing Right sided stone of 4mm has moved since 2 days ago. Pt feels his pain is on both left and right flank areas and comes in waves. He took flomax in the ER, but did not take it at home since then. He notes urine output significantly dropped last evening. He denies gross hematuria since prior to first ER visit. Upon presentation today the patient is found to have CARINA with creatinine elevated at 4.36 compared to 1.49 on 10/29/18. WBC is 12K and afebrile. Principal Diagnosis B/L hydronephrosis, s/p stenting and improved renal function Discharge Exam Constitutional well developed and average body habitus Eyes no conjunctival abnormality and no scleral abnormality Neck normal visual inspection and trachea midline Respiratory normal respiratory effort; no respiratory distress Auscultation: lungs clear to auscultation bilaterally Cardiovascular RRR, no murmur, no edema Gastrointestinal (Abdomen) normal bowel sounds, soft, nontender, no hepatosplenomegaly Musculoskeletal no cyanosis or clubbing, extremities motor strength 5/5 Discharge Data Allergies Allergy/AdvReac Type Severity Reaction Status Date / Time No Known Allergies Allergy Verified 10/29/18 17:15 Consultations 10/31/18 09:35 ED Decision to Admit Stat 10/31/18 12:14 Consult Nephrology Routine Consult Urology Routine Procedures Performed Operation Date: 10/31/18 12:45 Actual Procedures p Cystoscopy, Right Ureteroscopy, Laser Lithotripsy, Bilateral Stent Placement, Ureteral Dilation (Bilateral) - Blanco Mora MD Ordered Studies 10/31/18 13:10 FL fluoroscopy <1hr Routine FL retrograde includes kub Routine Hospital Course (1) CARINA (acute kidney injury): (2) Ureteral calculi: - Urology consulted - Dr. Mora 10/31/18 12:45 Anesthesiologist: Emile Dallas Anesthesia Type: General Cystoscopy, Right Ureteroscopy, Laser Lithotripsy, Bilateral Stent Placement, Ureteral Dilation Side: Bilateral Pt had scheduled outpt lithotripsy scheduled for 1st week in December for left nephrolithiasis. - CT FROM 10/29/18 showed 4 mm stone in the distal right ureter with moderate right hydroureteronephrosis. Also showing on that CT was right-sided perinephric and periureteric stranding/fluid, as well as heterogeneous enhancement of the right kidney. - KUB 10/31/18 shows 7 mm left sided at the [facility]. - Repeat UA on admission, last one was negative for infectious organisms. - - CARINA with creatinine elevated at 4.36 compared to 1.49 on 10/29/18 - Renal U/S stat - Cont Flomax - Dilaudid IV for pain - Check serum urine osm, FeNA, random urine sodium (3) HLD (hyperlipidemia): (4) Diabetes mellitus: metformin and trulicity - Check A1C (5) Obesity (BMI 30-39.9): - Diet and exercise to be encouraged again upon discharge. - BMI of 38.9 (6) Constipation: - Miralax and dulcolax PO (7) Hepatic steatosis: - noted on imaging. Total Time Total Time Spent Total Time Spent (In Minutes): greater than 30 minutes were required to prepare discharge Discharge Plan Discharge Items Patient Disposition: Home - Self-Care Reason For Visit: NEPHROLITHIASIS Discharge Diagnosis: kidney stents in both sided kidney distress resolved Condition: Good Discharge Goals: Decrease discomfort and Diagnostic testing Activity: Resume your previous activity Non-emergency contact: Primary Care Provider and Urologist Call non-emergency contact if: you have any medication questions Follow-up/Referrals: Blanco Mora MD [Physician] - Vic Tijerina [Primary Care Provider] - Diet: Regular Addtl Provider Instructions: please hydrate follow up with DR Mora, call this week for appointment Prescriptions: Continued tamsulosin 0.4 mg capsule 0.4 mg PO DAILY Qty: 14 RF: 0 simvastatin 20 mg tablet 20 mg PO HS RF: 0 metformin 1,000 mg tablet 1,000 mg PO BID RF: 0 Trulicity 1.5 mg/0.5 mL pen injector 1 dose subcut WK RF: 0 oxycodone-acetaminophen 5-325 mg tablet 1 tab PO Q6H PRN (Reason: pain) Qty: 14 RF: 0 Discontinued acetaminophen [Tylenol Extra Strength] 500 mg Tablet 1,000 mg PO Q6H PRN (Reason: Pain) RF: 0 hydrocodone-acetaminophen [[place]] 5-325 mg tablet 1 tab PO Q6H PRN (Reason: pain) Qty: 14 RF: 0 Stand-Alone Forms: [facility] Discharge Orders: Discharge Order (Routine); Ordered 11/01/18 Ordered By: Bishnu Maria Admission Data Admit Date/Time: 10/31/18 10:01 Attending Provider: Bishnu Maria Admit Provider: Andres Hester Primary Care Provider: [facility] Other Providers: Saúl Villalobos ; Cas Hester I. ; Andres Hester Service: Surgical Services Other [place] Date/Time DO NOT enter until pt leaves facility: 11/01/18 11:26
[2018-11-02 06:43] LABS: Estimated Average Glucose 203 mg/dl; Hemoglobin A1C 8.7 % (4.5-5.6)
== END 2018-11-01 11:26 | disposition home or self-care (01) | DRG 661 ==
LOC: ED 09:09 → SUATTDRO 10:01 → 3N 10:01